=== PATIENT | male | born 1955 | race Two or more races ===

== ENCOUNTER 2017-05-22 05:45 | Inpatient (IN) | payer OTHER ==
[2017-05-22] VITALS (13 sets, daily range): BP systolic 106–125; BP diastolic 58–83
[~2017-05-22] VITALS: Ht 175.3 cm; Wt 90.3 kg
[~2017-05-22 05:45] MED LIST: NKM
[2017-05-22] MEDS ORDERED: Thrombin 5000 units TOPIC ONE (06:57)
[2017-05-22] MEDS ORDERED: Bupivacaine 0.5% Inj 30 ml vial INJ ONE (06:58)
[2017-05-22] MEDS ORDERED: Vancomycin 1gm inj IVPB ONE (06:58)
[2017-05-22] MEDS ORDERED: Lidocaine 1% 10mg/ml/EPI 0.01mg/ml 50ml INJ ONE (06:58)
[2017-05-22] MEDS ORDERED: Bacitracin 50000 Units Vial ONE (06:58)
[2017-05-22] MEDS ORDERED: ceFAZolin sod 2 GM in D5W 110 ML IVPB ONE (07:00)
--- NOTE | 2017-05-22 07:10 | Pre-Procedure Note/Attestation ---
Pre-Procedure Note/Attestation Complete Prior to Procedure Procedure Narrative: acdf C34 Indications for Procedure Pre-Operative Diagnosis: cervical myeloradiculopathy Attestation I attest that I discussed the nature of the procedure; its benefits; risks and complications; and alternatives (and the risks and benefits of such alternatives ), prior to the procedure, with the patient (or the patient's legal union contract representative). I attest that, if there was a reasonable possibility of needing a blood transfusion, the patient (or the patient's legal union contract representative) was given the [facility] standardized written summary, pursuant to the [place] Blood Safety Act ([place] Health and Safety Code # 1645, as amended). I attest that I re-evaluated the patient just prior to the surgery and that there has been no change in the patient's H&P, except as documented below: RAMON CANDELARIO May 22, 2017 07:10
[2017-05-22] MEDS ORDERED: HYDROmorphone 1mg/ml Carpuject SUBQ PRN (07:15)
[2017-05-22] MEDS ORDERED: Naloxone 0.4mg/ml Inj IVP PRN (07:15)
[2017-05-22] MEDS ORDERED: HYDROcodone/Acetamin 7.5/325 tab ORAL PRN ×2 (07:15)
[2017-05-22] MEDS ORDERED: Norco 5mg/325mg tab ORAL PRN (07:15)
[2017-05-22] MEDS ORDERED: HYDROmorphone 1mg/ml Carpuject IVP PRN (07:15)
[2017-05-22] MEDS ORDERED: Morphine Sulfate 10mg/ml Inj ONE (07:30)
[2017-05-22] MEDS ORDERED: Zemuron 50mg/5ml Inj IV ONE (07:30)
[2017-05-22] MEDS ORDERED: Propofol 1,000mg/ 100ml btl IV ONE (07:30)
[2017-05-22] MEDS ORDERED: Midazolam 2mg/2ml Inj ONE (07:30)
[2017-05-22] MEDS ORDERED: Dexamethasone 4mg/ml vial ONE (07:30)
[2017-05-22] MEDS ORDERED: Sodium Chloride 10ml vial INJ ONE (07:30)
[2017-05-22] MEDS ORDERED: Ketorolac 30mg Inj ONE (07:30)
[2017-05-22] MEDS ORDERED: fentaNYL 100 mcg/2 mL IV ONE (07:30)
[2017-05-22] MEDS ORDERED: NS Irrig 1000ml ONE (07:30)
[2017-05-22] MEDS ORDERED: Sterile Water Irrig 1000ml IRRIG ONE (07:30)
[2017-05-22] MEDS ORDERED: Succinylcholine 20mg/ml 10ml vial ONE (07:30)
[2017-05-22] MEDS ORDERED: LR 1000ml ONE (07:30)
[2017-05-22] MEDS: Docusate 100mg cap ORAL SCH ×2 (09:00→17:40)
[2017-05-22] MEDS ORDERED: LR 1000ml 1,000 ML IVLG SCH (09:04)
--- NOTE | 2017-05-22 09:04 | Anethesia Preoperative Eval ---
Anesthesia Pre-op PMH/ROS General Date of Evaluation: May 22, 2017 Time of Evaluation: 07:22 Anesthesiologist: Lucero ASA Score: ASA 2 Mallampati Score Class I : Soft palate, uvula, fauces, pillars visible Class II: Soft palate, uvula, fauces visible Class III: Soft palate, base of uvula visible Class IV: Only hard plate visible Mallampati Classification: Class III Surgeon: Praful Diagnosis: Cervical radiculopathy Surgical Procedure: ACDF Anesthesia History: none Social History: smoking - h/o Family History: no anesthesia problems Allergies: Coded Allergies: No Known Allergies (Unverified , 05/21/17) Medications: see eMAR Past Medical History Cardiovascular: Denies: HTN, CAD, VA, valve dz, arrhythmia, other Pulmonary: Denies: asthma, COPD, MARGARITA, other Gastrointestinal/Genitourinary: Reports: GERD - mild, Denies: CRI, ESRD, other Neurologic/Psychiatric: Reports: other - chronic pain, Denies: dementia, CVA, depression/anxiety, TIA Endocrine: Denies: DM, hypothyroidism, steroids, other HEENT: Denies: cataract (L), cataract (R), glaucoma, [place] (L), [place] (R), other Hematology/Immune: Denies: anemia, DVT, bleeding disorder, other Musculoskeletal/Integumentary: Denies: OA, RA, DJD, DDD, edema, other Other: other - overweight PMH Narrative: as above PSxH Narrative: none Anesthesia Pre-op Phys. Exam Physician Exam Last Vital Signs Date Time Temp Pulse Resp B/P (MAP) Pulse Ox O2 Delivery O2 Flow Rate FiO2 05/22/17 06:38 97.6 63 20 115/75 96 Room Air Constitutional: NAD Neurologic: CN 2-12 intact Cardiovascular: RRR, no M/R/G Respiratory: CTA Gastrointestinal: S/NT/ND Airway Exam Mallampati Score: Class III MO: limited Neck: short restricted movements ROM: limited Teeth: missing Dentures: no upper, no lower Anesthesia Pre-op A/P Labs see chart Accucheck Rechecked in preop 96 Studies Pre-op Studies: EKG - NSR Risk Assessment & Plan Assessment: ASA 2 Plan: GA with ETT neuromonitoring Status Change Before Surgery: No Pre-Antibiotics Drug: Ancef 2gr. Given Within 1 Hr of Incision: Yes Time Given: 08:09 SOTERO OATES M.D. May 22, 2017 09:04
[2017-05-22] MEDS ORDERED: Hydromorphone 0.5mg/0.5ml inj IVP PRN (09:15)
[2017-05-22] MEDS ORDERED: Midazolam 2mg/2ml Inj IVP PRN (09:15)
[2017-05-22] MEDS ORDERED: Ketorolac 30mg Inj IV PRN (09:15)
[2017-05-22] MEDS ORDERED: DiphenhydrAMINE 50mg/ml Inj IVP PRN (09:15)
[2017-05-22] MEDS ORDERED: Meperidine 50mg/ml Inj(FOR RIGORS ONLY) IV PRN (09:15)
--- NOTE | 2017-05-22 10:13 | Brief Operative Note ---
Immediate Post Operative Note Operative Note Pre-op Diagnosis: cervical myeloradiculopathy Procedure: ACDF C34 Post-op Diagnosis: LUCINDA Post-op Diagnosis: same as pre-op Findings: consistent w/pre-op dx studies Surgeon: ANDREE Information Operator: KIARRA Anesthesia: general Specimen: none Complications: none Condition: stable Fluids: 1 LITER Estimated Blood Loss: minimal - 10CC Drains: none Implant(s) used?: Yes RAMON CANDELARIO May 22, 2017 10:13
--- NOTE | 2017-05-22 10:36 | Immediate Post-Op Evaluation ---
Immediate Post-Op Evalulation Immediate Post-Op Evalulation Procedure: ACDF C3-C4 Date of Evaluation: May 22, 2017 Time of Evaluation: 10:34 IV Fluids: 1200 Blood Products: none Estimated Blood Loss: <50 Urinary Output: 250 Blood Pressure Systolic: 116 Blood Pressure Diastolic: 64 Pulse Rate: 72 Respiratory Rate: 20 O2 Sat by Pulse Oximetry: 98 Temperature (Fahrenheit): 97.6 Pain Score (1-10): 2 Nausea: No Vomiting: No Complications none Patient Status: reacts, patent, extubated, none Hydration Status: adequate SOTERO OATES M.D. May 22, 2017 10:35
[2017-05-22] MEDS: D5 1/2NS 1,000 ML IV SCH (12:52)
[2017-05-22] MEDS ORDERED: ceFAZolin sod 1 GM in D5W 55 ML IV SCH (14:00)
[2017-05-22] MEDS: ceFAZolin sod 1 GM in NS 55 ML IV SCH (15:36)
[2017-05-23] VITALS: BP 120/70
[2017-05-23] MEDS: D5 1/2NS 1,000 ML IV SCH ×2 (00:11→08:00)
[2017-05-23] MEDS: ceFAZolin sod 1 GM in NS 55 ML IV SCH ×2 (00:13→08:57)
[2017-05-23 04:00] VITALS: BP 121/89
[2017-05-23] MEDS: Docusate 100mg cap ORAL SCH (09:00)
[2017-05-23 09:04] VITALS: BP 151/73
[2017-05-23 09:14] VITALS: BP 116/54
--- NOTE | 2017-05-23 09:14 | 48 Hour Post Anesthesia Eval ---
Post Anesthesia Evaluation Procedure: ACDF C3-C4 Date of Evaluation: May 23, 2017 Time of Evaluation: 09:13 Blood Pressure Systolic: 116 0: 54 Pulse Rate: 68 Respiratory Rate: 20 Temperature (Fahrenheit): 97.6 O2 Sat by Pulse Oximetry: 98 Airway: patent Nausea: No Vomiting: No Pain Intensity: 2 Hydration Status: adequate Cardiopulmonary Status: stable Mental Status/LOC: patient returned to baseline Follow-up Care/Observations: n/a Post-Anesthesia Complications: none Follow-up care needed: ready to discharge SOTERO OATES M.D. May 23, 2017 09:14
[2017-05-23] MEDS ORDERED: NORCO 5-325 TA1 EAC1 ORAL (10:16)
[2017-05-23] MEDS ORDERED: SOMA350 MG PO (10:18)
[2017-05-23] MEDS ORDERED: D5 1/2NS 1000ml IV ONE (11:29)
[2017-05-23] MEDS ORDERED: Tubing IV Secondary IV ONE (11:29)
--- NOTE | 2017-05-23 12:56 | Operative Note - Dictated ---
DATE OF OPERATION: 05/22/2017 PREOPERATIVE DIAGNOSES: 1. C3-C4 disk protrusion. 2. Spinal cord compression stenosis. 3. Myeloradiculopathy. POSTOPERATIVE DIAGNOSES: 1. C3-C4 disk protrusion. 2. Spinal cord compression stenosis. 3. Myeloradiculopathy. PROCEDURE PERFORMED: 1. Interbody arthrodesis at C3-C4. 2. Anterior cervical instrumentation at C3-C4. 3. Anterior cervical diskectomy and decompression of the spinal cord at C3-C4. 4. Implantation of PEEK interbody device at C3-C4. 5. Autologous bone harvest and implantation at C3-C4. 6. Intraoperative use of fluoroscopy. 7. Intraoperative use of microscope. 8. SSEP neurophysiological monitoring. SURGEON: Jhoan Basilio M.D. EXTERNAL RELATIONS MANAGER: Glenn Chirinos M.D. ANESTHESIA: General endotracheal anesthesia. ANESTHESIOLOGIST: Rafi Barker M.D. ESTIMATED BLOOD LOSS: Less than 20 mL. INTRAVENOUS ANTIBIOTICS: 2 g of IV Ancef. COMPLICATIONS: None. BACKGROUND: The patient is a pleasant gentleman who failed nonoperative treatment and option for above. Treatment was given. Risks, alternatives, and benefits were discussed with the patient at length. The patient wished to proceed. These include, but are not limited to, anesthesia complications including , medical complications including liver or kidney or cardiopulmonary deficits, bleeding, infection, dysphonia, dysphagia, hematoma of the neck, nerve root injury, paralysis, spinal cord injury, CSF leak, dural tear, fracture of the hardware, loosening of the hardware, need for revision, decompression and fusion, swallowing difficulties, esophageal injury, tracheal injury recurrent laryngeal nerve injury as well as other complications. The patient understood and wished to proceed. All the patient's questions were answered. Written and verbal consent was given. No guarantees were given. OPERATIVE FINDINGS: Disk protrusion at C3-C4 with spinal cord compression as well as compression of the exiting C4 nerve roots. DESCRIPTION OF OPERATION: The patient was brought to the operating room supine on a stretcher. Appropriate IV lines were placed by the anesthesiologist. A 2 g of Ancef was administered. Preoperative dexamethasone was administered. The patient was induced and intubated without complication. The patient was gently placed on the operating room table. The neck was placed in neutral alignment. The arms were tucked by the side. All bony prominences were well padded as well as the four extremities. SSEP neurophysiological leads were placed and baseline recordings were done. Preoperative fluoroscopy revealed the planned incision to be over the right side of the neck at the level of the C3-C4 interspace. Fluoroscopy revealed the neck to be in adequate alignment. The neck was prepped and draped in usual sterile fashion with alcohol, chlorhexidine scrub ChloraPrep [place] draping. At this point, an incision was carried out with a scalpel on the anterior right side of the neck in the crease of the neck. Hemostasis was achieved with bipolar cautery. The platysma was incised in line with the skin incision. Blunt dissection was carried out in the interval between the strap muscles and the sternocleidomastoid. Superficial cervical fascia was dissected caudally as well as cephalad. Carotid pulse was palpated and was found to be well lateral to the field of dissection. Deep cervical fascia was encountered and blunt dissections with Kitners entailed as well as finger dissection to find the prevertebral space. The longus coli was found on both sides of the spine. The longus coli was subperiosteally dissected off of the spine. At this point, retractors were set into place. Spinal needle was used to identify the C3-C4 interspace via lateral fluoroscopy. endless belt finisher retractors were set in to place. Intraoperatively, sterilely draped microscope was used throughout the case from the very beginning of the case. At this point, the diskectomy was begun and #15 scalpel was used to make an incision in the anterior anulus, pituitary rongeurs as well as straight and curved curettes were used to remove the disk. The microscope was brought into the field and retractors were set into place. A #2 and #1 [place], rongeurs, and sharp curette were used to do a total radical diskectomy to the level of the posterior longitudinal ligament. High-speed drill was used to remove the posterior osteophytes off of C3 and C4. A #1 Microsect curettes were used to remove the PLL and a complete decompression of spinal cord and nerve roots entailed. There was a large central disk herniation with right more than left paracentral extension causing compression of the neural elements including the spinal cord and the traversing and exiting nerve roots. Once the complete decompression was completed, Valsalva at 40 mmHg was done. There was no CSF leak. The spinal element system trials were used and a #6 non-lordotic PEEK cage trial was found to be excellent sitting at the C3-C4 level. The corresponding peek interbody device was chosen and was packed with [place] on putty as well as autograft and tamped into place at C3-C4 with excellent recreation of disk height now. A [place] plate was used with #14 screws to fix the plate to the anterior surface of the C3 and C4 vertebral bodies. Each screw had excellent purchase and sat below the locking mechanism of the plate appropriately. AP and lateral fluoroscopy revealed the PEEK and plate and screws to be in excellent position. Copious triple antibiotic solution was used throughout the case and in the interbody space as well as more superficially. At this point, attention was diverted to closure. There was no bleeding. The platysma was closed with 3-0 Vicryl sutures. The subcuticular layer was closed with 3-0 Monocryl. Dermabond and sterile dressing was placed. All sponge, needle, and instrument counts were correct. There were no complications during the case. The patient was extubated in stable condition and taken to recovery room with the cervical collar and found to be neurovascularly intact. Jhoan Basilio M.D. DR: Viv JOB#: [id number] CC: LALIT
--- NOTE | 2017-05-23 15:34 | Diagnostic Imaging Report ---
Indication: Neck Pain Findings: Fluoroscopic views of the cervical spine were obtained. Localization images followed by anterior cervical fusion at C3-4 noted. IMPRESSION: Intraoperative imaging
--- NOTE | 2017-05-26 12:51 | Discharge Summary ---
Discharge Summary Hospital Course Date of Admission May 22, 2017 at 05:45 Date of Discharge May 23, 2017 at 11:30 Admitting Diagnosis Cervical myeloradiculopathy Reason for Hospitalization: elective surgery HPI Betty Menjivar is a 62 year old male who was admitted on May 22, 2017 at 05:45 for cervical myeloradiculopathy and elective surgery Procedures s/p 05/22/[address] Basilio 1. Interbody arthrodesis at C3-C4. 2. Anterior cervical instrumentation at C3-C4. 3. Anterior cervical diskectomy and decompression of the spinal cord at C3-C4. 4. Implantation of PEEK interbody device at C3-C4. 5. Autologous bone harvest and implantation at C3-C4. 6. Intraoperative use of fluoroscopy. 7. Intraoperative use of microscope. 8. SSEP neurophysiological monitoring. Hospital Course s/p surgery course of recovery uneventful pain addressed and controlled neurovascular intact cervical collar on tolerated liquid diet Throat lozenges prn ambulated voided cleared for discharge outpt fup with surgeon as advised by surgeon FINAL DIAGNOSIS C3-C4 disk protrusion. Spinal cord compression stenosis. Myeloradiculopathy. s/p ACDF C3-C4 Discharge Medications Continued Medications: Carisoprodol* (Soma*) 350 Mg Tablet 350 MG PO Q6H PRN for Muscle Spasm, TAB Hydrocodone Bit/Acetaminophen 5-325* ([place] 5-325 Tablet*) 1 Each Tablet 1 TAB ORAL Q6HR PRN for For Pain, TAB Discharge Condition Upon Discharge: stable Discharge Disposition Patient was discharged to Home (01) Discharge Diagnoses: Discharge Instructions Discharge Instructions Special Instructions I have been assigned to complete a D/C Summary on this account. I was not involved in the patient management Mary Rodriguez NP ([place]) May 26, 2017 12:51
== END 2017-05-23 11:30 | disposition home or self-care (01) | DRG 473 ==
LOC: SDSOVERFLO 05:45 → 3E 11:30
PROC: 0RG10A0 Fusion of Cervical Vertebral Joint with Interbody Fusion Device, Anterior Approach, Anterior Column, Open Approach (ICD-10-PCS; principal; 2017-05-22 07:30)
PROC: 0RT30ZZ Resection of Cervical Vertebral Disc, Open Approach (ICD-10-PCS; principal; 2017-05-22 07:30)
PROC: 00NW0ZZ Release Cervical Spinal Cord, Open Approach (ICD-10-PCS; principal; 2017-05-22 07:30)
PROC: 01N10ZZ Release Cervical Nerve, Open Approach (ICD-10-PCS; principal; 2017-05-22 07:30)
DX: M50.01 Cervical disc disorder with myelopathy, high cervical region (principal); M48.02 Spinal stenosis, cervical region; M50.11 Cervical disc disorder with radiculopathy, high cervical region
CPT/HCPCS: 36415; 72040; 76001; 82962; 86850; 86900; 86901; 87081; 94003; 94150; J2250